=== PATIENT | female | born 1935 | race Caucasian/White ===

== ENCOUNTER 2016-09-01 21:38 | Observation (INO) ==
--- NOTE | 2016-09-01 21:51 | Emergency Department Note ---
Disposition Clinical Impression: Generalized weakness Urinary tract infection Qualifiers: Urinary tract infection type: acute cystitis Hematuria presence: without hematuria Qualified Code(s): N30.00 - Acute cystitis without hematuria Fever Qualifiers: Fever type: unspecified Qualified Code(s): R50.9 - Fever, unspecified Disposition: Admitted As Inpatient Condition: Good Referrals: Daniela Aburto MD [Primary Care Provider] - Forms: ED Satisfaction Letter Time of Disposition: 23:11 Weakness HPI - General Chief complaint: ED Weakness Stated complaint: weakness onset 2030 Time Seen by Provider: 09/01/16 21:45 Source: patient, family Mode of arrival: wheelchair Limitations: physical limitation (Early dementia) Nursing Notes Reviewed: Yes Vital Signs Reviewed: Yes - History of Present Illness HPI Narrative: 81-year-old female with onset of fatigue and weakness this evening. She has developed some rhinorrhea and a dry cough in the last 24 hours. She had fallen earlier today without injury. She was helped up and did fine. No loss of consciousness. No obvious injury to her head or any other area of her body. About 2 hours ago while she suddenly felt very weak, she had great difficulty in ambulating. Her cough has gotten worse. She has had a low-grade fever. No frequency or urgency. No chest pain or abdominal pain. Pt Subjective Complaint: generalized weakness/fatigue Onset (ago): hour(s) Duration: constant Location: generalized Migration: none Pain Severity: none Pain Scale: 0 Improves with: none Worsens with: exertion Context: recent illness Associated symptoms: Reports: denies other symptoms - Related Data Home Medications Medication Instructions Recorded Confirmed Aspirin [Lo-Dose Aspirin EC] 81 mg PO DAILY 09/01/16 09/01/16 Donepezil HCl [Aricept] 5 mg PO DAILY 09/01/16 09/01/16 Donepezil HCl [Aricept] 10 mg PO DAILY 09/01/16 09/01/16 Escitalopram [Lexapro] 10 mg PO DAILY 09/01/16 09/01/16 Memantine HCl [Namenda Xr] 28 mg PO DAILY 09/01/16 09/01/16 Potassium Chloride [Klor-Con 8 meq PO DAILY 09/01/16 09/01/16 Sprinkle] Quetiapine Fumarate [SEROquel] 100 mg PO HS 09/01/16 09/01/16 Triamterene/HCTZ 37.5/25mg 1 each PO DAILY 09/01/16 09/01/16 [Dyazide] Allergies Allergy/AdvReac Type Severity Reaction Status Date / Time No Known Allergies Allergy Verified 09/01/16 21:40 All systems ED: reviewed and negative except as stated. Constitutional: Reports: fever, chills Eyes: Denies: eye discharge ENT ED: Reports: congestion. Denies: ear pain, throat pain Cardiovascular: Denies: chest pain Respiratory: Reports: cough. Denies: dyspnea, wheezes Gastrointestinal: Denies: abdominal pain, nausea, vomiting, diarrhea Genitourinary: Denies: urgency, dysuria, frequency Integumentary: Denies: rash Physical Exam - General Limitations: no limitations General appearance: alert, in no apparent distress - Head Head exam: atraumatic, normocephalic - Eye Eye exam: Present: PERRL, EOMI. Absent: scleral icterus, conjunctival injection - ENT ENT exam: normal oropharynx, mucous membranes moist, TM's normal bilaterally - Neck Neck exam: Present: normal inspection, full ROM, trachea midline. Absent: tenderness, lymphadenopathy - Chest Chest inspection: Present: normal inspection, symmetric chest wall rise - Respiratory Respiratory exam: Present: normal lung sounds bilaterally. Absent: respiratory distress, wheezes, accessory muscle use - Cardiovascular Cardiovascular exam: Present: regular rate, normal rhythm, normal heart sounds - Abdominal Exam Abdominal exam: Present: soft, Non-Tender, normal bowel sounds. Absent: organomegaly, mass - Extremities Exam Extremities exam: Present: normal inspection, full ROM, normal capillary refill. Absent: tenderness - Back Exam Back exam: Present: normal inspection. Absent: CVA tenderness (R), CVA tenderness (L) - Neurological Exam Neurological exam: Present: alert, oriented X3, CN II-XII intact, reflexes normal (Diffusely weak but symmetrical motor function.) - Psychiatric Psychiatric exam: Present: normal affect, normal mood - Skin Skin exam: Present: warm, dry, intact Course - Reevaluation(s) Reevaluation #1: Discussed with Dr. Hernandez. Accepted for admission. Time: 23:23 Vital Signs Temperature 100.5 F H 09/01/16 21:41 Pulse Rate 71 09/01/16 21:41 Respiratory Rate 09/01/16 21:41 Blood Pressure 141/57 09/01/16 21:41 O2 Sat by Pulse Oximetry 94 L 09/01/16 21:41 Temperature 100.5 F H 09/01/16 21:42 Pulse Rate 76 09/01/16 22:04 Respiratory Rate 18 09/01/16 22:04 Blood Pressure 121/54 09/01/16 22:04 O2 Sat by Pulse Oximetry 94 L 09/01/16 22:04 Oxygen Delivery Oxygen Delivery Room Air Weakness - MDM Narrative Medical decision making narrative: Differential includes but is not limited to influenza, pneumonia, urinary tract infection, dehydration, hypoglycemia, hyperglycemia, CVA, traumatic subarachnoid hemorrhage. She has a low-grade fever, and pyuria. She has generalized weakness and is unable to ambulate. I plan on giving her IV fluids in light of her minimally elevated lactic acid, Rocephin IV, and plan on talking with Dr. Hernandez about observation admission. She is not able to go home because of generalized weakness. There is no indication that this is a neurologic problem, she has no focal weakness, her head CT is normal. - Lab Data Lab results reviewed: Yes I reviewed the patient's lab results. Result diagrams: 09/01/16 22:18 09/01/16 22:18 Lab Results 09/01/16 09/01/16 09/01/16 Range/Units 22:18 22:18 22:18 WBC 10.6 (4.3-11.1) K/mcL RBC 3.97 (3.82-4.97) M/mcL Hgb 12.7 (11.5-15.4) g/dL Hct 37.6 (35.3-44.9) % MCV 94.7 (83.0-100.0) fL MCH 32.0 (28.0-33.3) pg MCHC 33.8 (31.6-35.5) g/dL RDW 13.2 (11.5-14.5) % Plt Count 189 (140-400) K/mcL MPV 10.4 (9.4-12.4) fL Immature Gran % 0.3 (0-4) % Seg Neutrophils % 85.3 % Lymphocytes % 7.6 % Monocytes % 6.1 % Eosinophils % 0.2 % Basophils % 0.5 % Neutrophils # 9.1 H (1.6-8.9) K/mcL Lymphocytes # 0.8 (0.6-4.6) K/mcL Monocytes # 0.7 (0.0-1.3) K/mcL Eosinophils # 0.0 (0.0-0.6) K/mcL Basophils # 0.1 (0.0-0.2) K/mcL VBG Lactic Acid (0.5-2.2) mmol/L Sodium 137 (136-145) mEq/L Potassium 3.7 (3.5-4.5) mEq/L Chloride 100 (98-109) mEq/L Carbon Dioxide 23 (19-29) mEq/L BUN 17 (7-20) mg/dL Creatinine 1.06 (0.57-1.11) mg/dL Est GFR ( Amer) > 60 (> 60) Est GFR (Non-Af Amer) 50 L (> 60) BUN/Creatinine Ratio 16 (6-26) Glucose 137 H (70-99) mg/dL Calculated Osmolality 288 (280-300) Calcium 8.9 (8.6-10.8) mg/dL Total Bilirubin 0.5 (0.2-1.2) mg/dL AST 17 (5-34) Units/L ALT 11 (0-55) Units/L Alkaline Phosphatase 70 (38-126) Units/L Troponin I 0.01 (0-0.03) ng/mL Serum Total Protein 6.6 (6.0-8.3) g/dL Albumin 3.3 L (3.5-5.0) g/dL Globulin 3.3 (2.4-3.5) g/dL Albumin/Globulin Ratio 1.0 L (1.1-2.2) Urine Color (Yellow) Urine Clarity (Clear) Urine pH (5.0-8.0) pH Units Ur Specific [place] (1.010-1.025) Urine Protein (Neg-Trace) mg/dL Urine Glucose (UA) (Normal) mg/dL Urine Ketones (Negative) mg/dL Urine Blood (Negative) Urine Nitrite (Negative) Urine Bilirubin (Negative) Urine Urobilinogen (Normal) mg/dL Ur Leukocyte Esterase (Negative) Urine Microscopic RBC (0-3) per hpf Urine Microscopic WBC (0-3) per hpf Ur Squamous Epith Cells (None-Few) per lpf Ur Culture Indicated? (NO) 03/01/17 03/01/17 Range/Units 22:18 22:32 WBC (4.3-11.1) K/mcL RBC (3.82-4.97) M/mcL Hgb (11.5-15.4) g/dL Hct (35.3-44.9) % MCV (83.0-100.0) fL MCH (28.0-33.3) pg MCHC (31.6-35.5) g/dL RDW (11.5-14.5) % Plt Count (140-400) K/mcL MPV (9.4-12.4) fL Immature Gran % (0-4) % Seg Neutrophils % % Lymphocytes % % Monocytes % % Eosinophils % % Basophils % % Neutrophils # (1.6-8.9) K/mcL Lymphocytes # (0.6-4.6) K/mcL Monocytes # (0.0-1.3) K/mcL Eosinophils # (0.0-0.6) K/mcL Basophils # (0.0-0.2) K/mcL VBG Lactic Acid 2.5 H (0.5-2.2) mmol/L Sodium (136-145) mEq/L Potassium (3.5-4.5) mEq/L Chloride (98-109) mEq/L Carbon Dioxide (19-29) mEq/L BUN (7-20) mg/dL Creatinine (0.57-1.11) mg/dL Est GFR ( Amer) (> 60) Est GFR (Non-Af Amer) (> 60) BUN/Creatinine Ratio (6-26) Glucose (70-99) mg/dL Calculated Osmolality (280-300) Calcium (8.6-10.8) mg/dL Total Bilirubin (0.2-1.2) mg/dL AST (5-34) Units/L ALT (0-55) Units/L Alkaline Phosphatase (38-126) Units/L Troponin I (0-0.03) ng/mL Serum Total Protein (6.0-8.3) g/dL Albumin (3.5-5.0) g/dL Globulin (2.4-3.5) g/dL Albumin/Globulin Ratio (1.1-2.2) Urine Color Yellow (Yellow) Urine Clarity Clear (Clear) Urine pH 7.5 (5.0-8.0) pH Units Ur Specific [place] 1.020 (1.010-1.025) Urine Protein Negative (Neg-Trace) mg/dL Urine Glucose (UA) Normal (Normal) mg/dL Urine Ketones Negative (Negative) mg/dL Urine Blood Trace-intact H (Negative) Urine Nitrite Negative (Negative) Urine Bilirubin Negative (Negative) Urine Urobilinogen Normal (Normal) mg/dL Ur Leukocyte Esterase Small H (Negative) Urine Microscopic RBC 0-3 (0-3) per hpf Urine Microscopic WBC 5-15 H (0-3) per hpf Ur Squamous Epith Cells Moderate H (None-Few) per lpf Ur Culture Indicated? YES A (NO) - Radiology Data Radiology results reviewed: Yes I reviewed the patient's radiology results. ITS Impressions Chest X-Ray 09/01/16 21:47 IMPRESSION: No acute cardiopulmonary abnormality. D/ / Mikie Chavez MD / Mikie Chavez MD Interpreting Provider: Mikie Chavez MD Head CT 09/01/16 21:49 IMPRESSION: No acute intracranial abnormality. White matter changes compatible with small vessel ischemic disease which are not unexpected given patient's stated age. MRI would be more sensitive for acute ischemic change. Minimal paranasal sinus disease. D/ / 09/01/2016 22:59:11 [facility] Inter[facility]ting Provider: Peng Culp MD - EKG Data EKG attestation: Yes I reviewed and interpreted this EKG. EKG results narrative: Sinus rhythm, rate of 72, no acute changes. Rhythm strip shows sinus rhythm with rate of 72, purulent 149 ms, QRS of 85 ms with no other ectopy as interpreted by me.
[2016-09-01 22:25] LABS: Basophils # 0.1 K/mcL (0.0-0.2); Basophils % 0.5 %; Eosinophils % 0.2 %; Hematocrit 37.6 % (35.3-44.9); Hemoglobin 12.7 g/dL (11.5-15.4); Immature Granulocytes % 0.3 % (0-4); Lymphocytes # 0.8 K/mcL (0.6-4.6); Lymphocytes % 7.6 %; Mean Corpuscular HGB Conc 33.8 g/dL (31.6-35.5); Mean Corpuscular Volume 94.7 fL (83.0-100.0); Mean Platelet Volume 10.4 fL (9.4-12.4); Monocytes # 0.7 K/mcL (0.0-1.3); Monocytes % 6.1 %; Neutrophils # 9.1 K/mcL (1.6-8.9); Platelet Count 189 K/mcL (140-400); Red Blood Count 3.97 M/mcL (3.82-4.97); Red Cell Distribution Width 13.2 % (11.5-14.5); Segmented Neutrophils % 85.3 %
[2016-09-01 22:40] LABS: Bilirubin,Urine Negative (Negative); Blood,Urine Trace-intact (Negative); Clarity,Urine Clear (Clear); Color,Urine Yellow (Yellow); Glucose,Urine (UA) Normal (Normal); Ketones,Urine Negative (Negative); Leukocyte Esterase,Urine Small (Negative); Nitrite,Urine Negative (Negative); PH,Urine 7.5 pH Units (5.0-8.0); Protein,Urine Negative (Neg-Trace); Urobilinogen,Urine Normal (Normal)
[2016-09-01 22:49] LABS: RBC,Urine 0-3 per hpf (0-3); Squamous Epithelial Cell,Urine Moderate per lpf (None-Few)
[2016-09-01] MEDS ORDERED: CefTRIAXone 1,000 MG in D5% in Water (Mini-Bag+) 100 ML IVPB ONE (22:53)
[2016-09-01 22:54] LABS: Alanine Aminotransferase 11 Units/L (0-55); Albumin 3.3 g/dL (3.5-5.0); Alkaline Phosphatase 70 Units/L (38-126); Aspartate Amino Transferase 17 Units/L (5-34); BUN/Creatinine Ratio 16 (6-26); Bilirubin,Total 0.5 mg/dL (0.2-1.2); Blood Urea Nitrogen 17 mg/dL (7-20); Calcium 8.9 mg/dL (8.6-10.8); Carbon Dioxide 23 mEq/L (19-29); Chloride 100 mEq/L (98-109); Globulin 3.3 g/dL (2.4-3.5); Glucose 137 mg/dL (70-99); Osmolality,Calculated 288 (280-300); Potassium 3.7 mEq/L (3.5-4.5); Sodium 137 mEq/L (136-145); Total Protein 6.6 g/dL (6.0-8.3); eGFR For African Americans > 60 (> 60); eGFR For Non-African Americans 50 (> 60)
[2016-09-01] MEDS ORDERED: 0.9 % Sodium Chloride 1,000 ML IVC SCH ×3 (23:00→23:51)
[2016-09-01] MEDS ORDERED: Acetaminophen 325 MG TABLET PO PRN (23:51)
[2016-09-01] MEDS ORDERED: Naloxone 0.4 MG/ML INJ IVP PRN (23:51)
[2016-09-02] MEDS ORDERED: CefTRIAXone 1,000 MG in D5% in Water (Mini-Bag+) 100 ML IVPB SCH ×2 (09:00→23:00)
[2016-09-02] MEDS ORDERED: Aspirin Enteric Coated 81 MG Tablet PO SCH (09:00)
[2016-09-02] MEDS ORDERED: Potassium Chloride Elixir 20 MEQ/15 ML UDC PO SCH (09:00)
[2016-09-02] MEDS ORDERED: NAMENDA 28 MG PO SCH (09:00)
--- NOTE | 2016-09-02 09:00 | Electrocardiograph Report ---
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
[2016-09-02 12:19] VITALS: BP 110/66
--- NOTE | 2016-09-02 15:02 | Internal Med History&Physical ---
Date of Encounter: 09/02/16 Time of Encounter: 14:25 Assessment and Plan (1) Urinary tract infection Current visit: Yes Status: Acute She was given Rocephin empirically in emergency room. Further workup will be done as needed. Qualifiers: Urinary tract infection type: acute cystitis Hematuria presence: without hematuria Qualified Code(s): N30.00 - Acute cystitis without hematuria (2) Fever Current visit: Yes Status: Acute She has evidence of UTI. Suspect possible viral infection present with URI symptoms of rhinorrhea and sore throat etc. Qualifiers: Fever type: unspecified Qualified Code(s): R50.9 - Fever, unspecified (3) Azotemia Current visit: Yes Status: Acute Renal function was normal February 2016 with creatinine 0.74. I told her a trial off Dyazide might be appropriate Internal Medicine - H&P: HPI Chief complaint: Fall and weakness Admitted From: Home Plans for Post Hospital Care: Home History of present illness: Ms. Davila is a 81 year old female who came to emergency room after family reports she sustained a fall approximately 9:30 AM. She reports there was vertigo associated with the fall. She had approximately 50% intake of her lunch and supper. She was noted to be incontinent approximately 8:30 PM and had another episode of weakness. She was brought to emergency room and admitted to [facility] for ongoing care needs. She reports for several weeks she has had episodes of nearly falling due to sensation of vertigo. She reports having sore throat and rhinorrhea also for 2 weeks. She has had a dry cough the past few days. She denies GI symptoms. Her neurologic history is negative for large distribution strokes or seizures. She states she feels improved now and back to baseline. She wishes to be discharged home. Past Med Surg Social Fam HX - Past Medical History Medical history: arthritis, cancer, dementia, hypertension, other Psychiatric history: depression - Social History Smoking Status: Never smoker Smokeless Tobacco Status: No Alcohol use: none Drug use: none - Family History Mother Adopted: No Cause of : 101 Hx Family Neurologic Disorders: Yes (Alzheimers) Father Living Status: Age at : 86 Cause of : car accident Internal Medicine - H&P: Meds Aspirin [Lo-Dose Aspirin EC] 81 mg PO DAILY 09/01/16 [History] Donepezil HCl [Aricept] 5 mg PO DAILY 09/01/16 [History] Donepezil HCl [Aricept] 10 mg PO DAILY 09/01/16 [History] Escitalopram [Lexapro] 10 mg PO DAILY 09/01/16 [History] Memantine HCl [Namenda Xr] 28 mg PO DAILY 09/01/16 [History] Potassium Chloride [Klor-Con Sprinkle] 8 meq PO DAILY 09/01/16 [History] Quetiapine Fumarate [SEROquel] 100 mg PO HS 09/01/16 [History] Triamterene/HCTZ 37.5/25mg [Dyazide] 1 each PO DAILY 09/01/16 [History] Allergies No Known Allergies Allergy (Verified 09/01/16 21:40) All Systems PM: A 10-system review of systems was performed and is negative for pertinent findings except as documented above in the HPI. Review of systems: Gen.: She states her weight has been stable the past few months Cardiovascular: She has a history of hypertension but denies SD heart failure angina DVT or pulmonary embolus Respiratory: She is a lifelong nonsmoker and has no known chronic lung disease GI: She has had gallstones in the past which were dissolved with ursodeoxycholic acid. She denies other disorders of her liver or exocrine pancreas : She denies hematuria dysuria or kidney stones. She denies chronic kidney disease. She did have creatinine 1.06 on emergency room lab work. Her creatinine was 0.74 on February 2016 labs. Neurologic: As per history of present illness. She has been diagnosed with Alzheimer's disease Endocrine: She states she had "thyroid problems" as a young adult. She does not know details. She denies diabetes or hyperlipidemia Hematology/oncology: She had left breast cancer diagnosed in 2007 and underwent lumpectomy and XRT. She follows with an oncologist and is presumed cancer free. She denies other blood disorders or internal malignancies Psychiatric: She has a history of depression but denies anxiety or other mental health issues was skeletal: She has DJD but no known gout or other bone joint or muscle disorders. - Constitutional Vitals: Temp Pulse Resp BP Pulse Ox 98.7 F 62 18 110/66 95 09/02/16 12:17 09/02/16 12:17 09/02/16 12:17 09/02/16 12:17 09/02/16 12:17 Exam: Gen.: She is a well-developed well-nourished female who appears in no severe distress at present time. HEENT: Head is atraumatic and normocephalic. Eyes: EOMI. There is no scleral icterus. Mouth: Mucosa is moist. Neck: Supple and nontender. There is no thyromegaly or adenopathy noted. Heart: Regular without murmurs gallops or ectopics. Lungs: No wheezes or crackles are heard. Abdomen: Soft and nontender. No masses or guarding are noted. Extremities: There is no cyanosis edema or clubbing noted. Dorsalis pedis and posttibial pulses are 1-2 over 2 bilaterally. Neurologic: Mental status: She is talkative and seems to be a fair to good historian. Cranial nerves: Smile is symmetric. Forehead wrinkles bilaterally. Tongue protrudes midline. EOMI. She had no reproduction of symptoms of vertigo on modified Hallpike maneuver or turning head [id number]. Motor: There is no pronator drift. Cerebellar: Finger to nose is intact bilaterally. Skin: Warm and dry Internal Med - H&P Results - Labs CBC & Chem 7: 09/01/16 22:18 09/01/16 22:18
--- NOTE | 2016-09-02 15:14 | Discharge Summary ---
Date of Encounter: 09/02/16 Time of Encounter: 14:25 - Discharge Diagnosis (1) Urinary tract infection Priority: Primary Status: Acute Qualifiers: Urinary tract infection type: acute cystitis Hematuria presence: without hematuria Qualified Code(s): N30.00 - Acute cystitis without hematuria (2) Fever Priority: Secondary Status: Acute Qualifiers: Fever type: unspecified Qualified Code(s): R50.9 - Fever, unspecified (3) Azotemia Priority: Secondary Status: Acute - Discharge Medications Prescriptions: Cefuroxime PO [Ceftin] 500 mg PO Q12HR #6 tablet Lactobacillus [Culturelle] 1 each PO BID #6 cap.sprink Home Medications: Aspirin [Lo-Dose Aspirin EC] 81 mg PO DAILY 09/01/16 [History] Donepezil HCl [Aricept] 5 mg PO DAILY 09/01/16 [History] Donepezil HCl [Aricept] 10 mg PO DAILY 09/01/16 [History] Escitalopram [Lexapro] 10 mg PO DAILY 09/01/16 [History] Memantine HCl [Namenda Xr] 28 mg PO DAILY 09/01/16 [History] Potassium Chloride [Klor-Con Sprinkle] 8 meq PO DAILY 09/01/16 [History] Quetiapine Fumarate [Seroquel] 100 mg PO HS 09/01/16 [History] Triamterene/HCTZ 37.5/25mg [Dyazide] 1 each PO DAILY 09/01/16 [History] Cefuroxime PO [Ceftin] 500 mg PO Q12HR #6 tablet 09/02/16 [Rx] Lactobacillus [Culturelle] 1 each PO BID #6 cap.sprink 09/02/16 [Rx] Allergies/Adverse Reactions: Allergies No Known Allergies Allergy (Verified 09/01/16 21:40) Date of admission: 09/01/16 23:28 Primary care physician: Daniela Aburto MD - Patient Status Disposition: Home, Self-Care Condition: Good Overall status at discharge: patient is progressing back to baseline - Discharge Instructions Follow Up With: Daniela Aburto MD [Primary Care Provider] - 1 week - Diet and Activity Activity: resume usual activities as tolerated Diet: advance to your usual diet Hospital course: Ms. Davila is a 81 year old female who came to emergency room after family reports she sustained a fall approximately 9:30 AM. She reports there was vertigo associated with the fall. She had approximately 50% intake of her lunch and supper. She was noted to be incontinent approximately 8:30 PM and had another episode of weakness. She was brought to emergency room and admitted to [facility] for ongoing care needs. Initial orders were written by the emergency room physician. I saw her on September 02 and performed the history physical and discharge. She was admitted to [facility] and given IV fluids and started empirically on Rocephin. When I saw her the afternoon of September 02 she felt improved and had no additional falls and no complaints of vertigo. She wished to be discharged home which I felt was reasonable. I felt she likely had a UTI and possibly viral infection causing URI symptoms. She will receive Ceftin and lactobacillus for 3 additional days at discharge. She will follow with her PCP within one week. Orthostatic vital signs will be checked prior to discharge. I told her the azotemia might be due in part to her Dyazide use. I will let her PCP consider a trial of discontinuing this and seeing if renal indices improve. - Time Spent with Patient Total time spent providing and/or coordinating discharge services: - Constitutional Vitals: Temp Pulse Resp BP Pulse Ox 98.7 F 62 18 110/66 95 09/02/16 12:17 09/02/16 12:17 09/02/16 12:17 09/02/16 12:17 09/02/16 12:17
== END 2016-09-02 16:36 | disposition home or self-care (01) ==
LOC: EMEROOPIK 21:38 → INPPIK 21:38
PROVIDERS: ADMIT Internal Medicine; ATTEND Internal Medicine

== ENCOUNTER 2018-07-18 23:48 | Inpatient (IN) ==
[2018-07-19] MEDS ORDERED: 0.9 % Sodium Chloride 1,000 ML IVC ONE (00:17)
[2018-07-19 00:44] LABS: Basophils % 0.3 %; Eosinophils % 0.2 %; Hematocrit 46.4 % (35.3-44.9); Hemoglobin 15.2 g/dL (11.5-15.4); Immature Granulocytes % 0.5 % (0-4); Lymphocytes # 0.6 K/mcL (0.6-4.6); Lymphocytes % 4.9 %; Mean Corpuscular HGB Conc 32.8 g/dL (31.6-35.5); Mean Corpuscular Volume 97.7 fL (83.0-100.0); Mean Platelet Volume 10.7 fL (9.4-12.4); Monocytes # 0.9 K/mcL (0.0-1.3); Monocytes % 6.7 %; Platelet Count 222 K/mcL (140-400); Red Blood Count 4.75 M/mcL (3.82-4.97); Red Cell Distribution Width 12.9 % (11.5-14.5); Segmented Neutrophils % 87.4 %
[2018-07-19 00:45] LABS: Neutrophils # 11.5 K/mcL (1.6-8.9)
[2018-07-19 01:01] LABS: Alanine Aminotransferase 9 Units/L (7-52); Albumin/Globulin Ratio 1.5 (1.1-2.2); Alkaline Phosphatase 79 Units/L (34-104); Aspartate Amino Transferase 17 Units/L (13-39); BUN/Creatinine Ratio 15 (6-26); Bilirubin,Direct 0.1 mg/dL (0.0-0.2); Bilirubin,Indirect 0.3 mg/dL (0.0-1.2); Bilirubin,Total 0.4 mg/dL (0.3-1.0); Blood Urea Nitrogen 19 mg/dL (8-23); Calcium 9.2 mg/dL (8.6-10.3); Carbon Dioxide 24 mEq/L (23-29); Chloride 104 mEq/L (98-107); Globulin 2.6 g/dL (2.4-3.5); Glucose 178 mg/dL (70-105); Osmolality,Calculated 297 (280-300); Potassium 4.1 mEq/L (3.5-5.1); Sodium 140 mEq/L (136-145); Total Protein 6.6 g/dL (6.4-8.9); eGFR For Non-African Americans 42 (> 60)
[2018-07-19 01:02] LABS: Troponin I < 0.03 ng/mL (< 0.04)
[2018-07-19 01:40] LABS: Bilirubin,Urine Negative (Negative); Blood,Urine Trace-lysed (Negative); Clarity,Urine Cloudy (Clear); Color,Urine Yellow (Yellow); Glucose,Urine (UA) Normal (Normal); Ketones,Urine Trace mg/dL (Negative); Leukocyte Esterase,Urine Large (Negative); Nitrite,Urine Positive (Negative); PH,Urine 5.5 pH Units (5.0-8.0); Protein,Urine Negative (Neg-Trace); Urobilinogen,Urine Normal (Normal)
[2018-07-19 01:46] LABS: Bacteria,Urine Many per hpf (None-Few); Hyaline Casts,Urine Few per lpf (None-Few); RBC,Urine 0-3 per hpf (0-3); Squamous Epithelial Cell,Urine Few per lpf (None-Few)
--- NOTE | 2018-07-19 02:16 | Emergency Department Note ---
Disposition Clinical Impression: Altered mental status Qualifiers: Altered mental status type: delirium Qualified Code(s): R41.0 - Disorientation, unspecified Urinary tract infection Qualifiers: Urinary tract infection type: site unspecified Hematuria presence: with hematuria Qualified Code(s): N39.0 - Urinary tract infection, site not specified Disposition: Admitted As Inpatient Condition: Fair Referrals: NONE,PCP [Primary Care Provider] - Forms: ED Satisfaction Letter Time of Disposition: 02:20 Altered Mental Status HPI - General Chief Complaint: ED Weakness Stated Complaint: Lethargic, altered mental status onset today Time Seen by Provider: 07/19/18 00:08 Source: patient, family Mode of arrival: private vehicle Limitations: no limitations Nursing Notes Reviewed: Yes Vital Signs Reviewed: Yes - History of Present Illness MD complaint: altered mental status 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 This seems to have improved on route to the emergency department.) Associated symptoms: Reports: denies other symptoms - Related Data Home Medications Medication Instructions Recorded Confirmed Aspirin [Lo-Dose Aspirin EC] 81 mg PO DAILY 09/01/16 07/19/18 Donepezil HCl [Aricept] 23 mg PO DAILY 09/01/16 07/19/18 Memantine HCl [Namenda Xr] 28 mg PO DAILY 09/01/16 07/19/18 Quetiapine Fumarate [Seroquel] 50 mg PO BID 09/01/16 07/19/18 Buspirone HCl [Buspar] 5 mg PO QID 07/19/18 07/19/18 Metoprolol [Lopressor] 25 mg PO DAILY 07/19/18 07/19/18 Previous Rx's Medication Instructions Recorded Cetirizine HCl [Zyrtec] 10 mg PO DAILY #90 tablet 12/21/17 Allergies Allergy/AdvReac Type Severity Reaction Status Date / Time No Known Allergies Allergy Verified 09/01/16 21:40 All systems ED: reviewed and negative except as stated. Constitutional: Denies: fever, chills ENT ED: Denies: ear pain, throat pain, congestion Cardiovascular: Denies: chest pain Respiratory: Denies: cough Gastrointestinal: Reports: diarrhea Integumentary: Denies: rash Neurological: Reports: weakness (Generalized), confusion (That seems to have resolved and is back to baseline) Past Medical History - Past Medical History Attestation: Yes The following information was validated with the patient. 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 Absent: scleral icterus, conjunctival injection - ENT ENT exam: normal exam, normal oropharynx, mucous membranes moist, normal external ear exam - Neck Neck exam: Present: normal inspection, full ROM. Absent: meningismus - Chest Chest inspection: Present: normal inspection, symmetric chest wall rise. Absent: tenderness - Respiratory Respiratory exam: Present: normal lung sounds bilaterally. Absent: respiratory distress, wheezes - Cardiovascular Cardiovascular exam: Present: regular rate, normal rhythm, normal heart sounds - Abdominal Exam Abdominal exam: Present: soft, Non-Tender, normal bowel sounds - Extremities Exam Extremities exam: Present: normal inspection. Absent: pedal edema - Neurological Exam Neurological exam: Present: alert, CN II-XII intact. Absent: motor sensory de ficit - Psychiatric Psychiatric exam: Present: normal affect, normal mood - Skin Skin exam: Present: warm, dry. Absent: rash Course Course Narrative: Patient presents with an episode of confusion this evening. Seems to have recovered and back to baseline at this point. Vital signs look good. Looking in the old records a see history of urinary tract infections with confusion. Infectious disease certainly is top of the list. We will do an altered mental status workup. There are no focal neurologic findings I do not see indication for CT. We will give the patient fluids and await lab results. Disposition will be based on diagnostic results and reevaluation. - Reevaluation(s) Reevaluation #1: Urinalysis came back obviously positive for urinary tract infection. Her lactic as was little bit high at 4.3 as well. However the rest of the labs looked pretty good. Vital signs are good with no tachycardia or hypotension at this point. I started Rocephin on the patient. She will need to be admitted to the hospital. I will talk to the hospitalist. Time: 02:18 - Consultations Consultation #1: Dr. Hernandez, hospitalist - I discussed the case with the hospitalist. He is accepting the patient for admission to the hospital Time: 02:34 Vital Signs Temperature 97.3 F L 07/18/18 23:50 Pulse Rate 81 07/18/18 23:50 Respiratory Rate 16 07/18/18 23:50 Blood Pressure 112/51 07/18/18 23:50 O2 Sat by Pulse Oximetry 97 07/18/18 23:50 Temperature 97.3 F L 07/18/18 23:50 Pulse Rate 67 07/19/18 01:50 Respiratory Rate 16 07/19/18 01:50 Blood Pressure 122/45 07/19/18 01:50 O2 Sat by Pulse Oximetry 96 07/19/18 01:50 Oxygen Delivery Oxygen Delivery Room Air Altered Mental Status - Medical Records Medical records reviewed: Yes I reviewed the patient's medical records. - Lab Data Lab results reviewed: Yes I reviewed the patient's lab results. Result diagrams: 07/19/18 00:36 07/19/18 00:36 Lab Results 07/19/18 07/19/18 07/19/18 Range/Units 00:36 00:36 00:36 WBC 13.1 H (4.3-11.1) K/mcL RBC 4.75 (3.82-4.97) M/mcL Hgb 15.2 (11.5-15.4) g/dL Hct 46.4 H (35.3-44.9) % MCV 97.7 (83.0-100.0) fL MCH 32.0 (28.0-33.3) pg MCHC 32.8 (31.6-35.5) g/dL RDW 12.9 (11.5-14.5) % Plt Count 222 (140-400) K/mcL MPV 10.7 (9.4-12.4) fL Immature Gran % 0.5 (0-4) % Seg Neutrophils % 87.4 % Lymphocytes % 4.9 % Monocytes % 6.7 % Eosinophils % 0.2 % Basophils % 0.3 % Neutrophils # 11.5 H (1.6-8.9) K/mcL Lymphocytes # 0.6 (0.6-4.6) K/mcL Monocytes # 0.9 (0.0-1.3) K/mcL Eosinophils # 0.0 (0.0-0.6) K/mcL Basophils # 0.0 (0.0-0.2) K/mcL D-Dimer 1420 H (0-500) ng/mLFEU Sodium 140 (136-145) mEq/L Potassium 4.1 (3.5-5.1) mEq/L Chloride 104 (98-107) mEq/L Carbon Dioxide 24 (23-29) mEq/L BUN 19 (8-23) mg/dL Creatinine 1.23 H (0.60-1.20) mg/dL Est GFR ( Amer) 51 L (> 60) Est GFR (Non-Af Amer) 42 L (> 60) BUN/Creatinine Ratio 15 (6-26) Glucose 178 H (70-105) mg/dL Calculated Osmolality 297 (280-300) Lactic Acid (0.5-2.2) mmol/L Calcium 9.2 (8.6-10.3) mg/dL Total Bilirubin 0.4 (0.3-1.0) mg/dL Direct Bilirubin 0.1 (0.0-0.2) mg/dL Indirect Bilirubin 0.3 (0.0-1.2) mg/dL AST 17 (13-39) Units/L ALT 9 (7-52) Units/L Alkaline Phosphatase 79 (34-104) Units/L Troponin I < 0.03 (< 0.04) ng/mL B-Natriuretic Peptide (Less than 100) pg/mL Serum Total Protein 6.6 (6.4-8.9) g/dL Albumin 4.0 (3.5-5.7) g/dL Globulin 2.6 (2.4-3.5) g/dL Albumin/Globulin Ratio 1.5 (1.1-2.2) Urine Color (Yellow) Urine Clarity (Clear) Urine pH (5.0-8.0) pH Units Ur Specific [place] (1.010-1.025) Urine Protein (Neg-Trace) mg/dL Urine Glucose (UA) (Normal) mg/dL Urine Ketones (Negative) mg/dL Urine Blood (Negative) Urine Nitrite (Negative) Urine Bilirubin (Negative) Urine Urobilinogen (Normal) mg/dL Ur Leukocyte Esterase (Negative) Urine Microscopic RBC (0-3) per hpf Urine Microscopic WBC (0-3) per hpf Ur Squamous Epith Cells (None-Few) per lpf Urine Bacteria (None-Few) per hpf Hyaline Casts (None-Few) per lpf Ur Culture Indicated? (NO) 07/19/18 07/19/18 07/19/18 Range/Units 00:36 00:36 01:25 WBC (4.3-11.1) K/mcL RBC (3.82-4.97) M/mcL Hgb (11.5-15.4) g/dL Hct (35.3-44.9) % MCV (83.0-100.0) fL MCH (28.0-33.3) pg MCHC (31.6-35.5) g/dL RDW (11.5-14.5) % Plt Count (140-400) K/mcL MPV (9.4-12.4) fL Immature Gran % (0-4) % Seg Neutrophils % % Lymphocytes % % Monocytes % % Eosinophils % % Basophils % % Neutrophils # (1.6-8.9) K/mcL Lymphocytes # (0.6-4.6) K/mcL Monocytes # (0.0-1.3) K/mcL Eosinophils # (0.0-0.6) K/mcL Basophils # (0.0-0.2) K/mcL D-Dimer (0-500) ng/mLFEU Sodium (136-145) mEq/L Potassium (3.5-5.1) mEq/L Chloride (98-107) mEq/L Carbon Dioxide (23-29) mEq/L BUN (8-23) mg/dL Creatinine (0.60-1.20) mg/dL Est GFR ( Amer) (> 60) Est GFR (Non-Af Amer) (> 60) BUN/Creatinine Ratio (6-26) Glucose (70-105) mg/dL Calculated Osmolality (280-300) Lactic Acid 4.3 H* (0.5-2.2) mmol/L Calcium (8.6-10.3) mg/dL Total Bilirubin (0.3-1.0) mg/dL Direct Bilirubin (0.0-0.2) mg/dL Indirect Bilirubin (0.0-1.2) mg/dL AST (13-39) Units/L ALT (7-52) Units/L Alkaline Phosphatase (34-104) Units/L Troponin I (< 0.04) ng/mL B-Natriuretic Peptide 33 (Less than 100) pg/mL Serum Total Protein (6.4-8.9) g/dL Albumin (3.5-5.7) g/dL Globulin (2.4-3.5) g/dL Albumin/Globulin Ratio (1.1-2.2) Urine Color Yellow (Yellow) Urine Clarity Cloudy A (Clear) Urine pH 5.5 (5.0-8.0) pH Units Ur Specific [place] 1.020 (1.010-1.025) Urine Protein Negative (Neg-Trace) mg/dL Urine Glucose (UA) Normal (Normal) mg/dL Urine Ketones Trace H (Negative) mg/dL Urine Blood Trace-lysed H (Negative) Urine Nitrite Positive A (Negative) Urine Bilirubin Negative (Negative) Urine Urobilinogen Normal (Normal) mg/dL Ur Leukocyte Esterase Large H (Negative) Urine Microscopic RBC 0-3 (0-3) per hpf Urine Microscopic WBC 5-15 H (0-3) per hpf Ur Squamous Epith Cells Few (None-Few) per lpf Urine Bacteria Many H (None-Few) per hpf Hyaline Casts Few (None-Few) per lpf Ur Culture Indicated? YES A (NO) - Radiology Data Radiology results reviewed: Yes I reviewed the patient's radiology results. - EKG Data EKG attestation: Yes I reviewed and interpreted this EKG. EKG results narrative: Twelve-lead EKG performed at 00:03 a.m. Ordered, reviewed and interpreted by ED physician. Sinus rhythm at a rate of 75. Left axis deviation. Slow R-wave progression across corneum. No obvious acute ischemic changes. Intervals are within normal limits. TPA Checklist - LKW: 3-4.5 hrs Add. Warnings/Precautions Patient/family understanding: The patient/family members have been counseled and understood the risk, benefit, and alternatives of treatment.
[2018-07-19] MEDS ORDERED: Naloxone 0.4 MG/ML INJ IVP PRN (03:14)
[2018-07-19] MEDS ORDERED: 0.9 % Sodium Chloride 1,000 ML IVC SCH (03:14)
[2018-07-19] MEDS ORDERED: DONEPEZIL 23MG PO SCH (09:00)
[2018-07-19] MEDS: Metoprolol XL (24 HR) Succ 25 MG TAB.ER.24H PO SCH (09:20)
[2018-07-19] MEDS: Aspirin Enteric Coated 81 MG Tablet PO SCH (09:20)
--- NOTE | 2018-07-19 11:51 | Internal Med History&Physical ---
Date of Encounter: 07/19/18 Time of Encounter: 11:25 Assessment and Plan (1) Acute renal failure Current visit: Yes Status: Acute IV fluids have been ordered. Renal indices will be monitored. Qualifiers: Acute renal failure type: unspecified Qualified Code(s): N17.9 - Acute kidney failure, unspecified (2) Diarrhea Current visit: Yes Status: Acute Suspect viral gastroenteritis. Anti-diarrhea medication has been ordered as needed. IV fluids will be given. Qualifiers: Diarrhea type: unspecified type Qualified Code(s): R19.7 - Diarrhea, unspecified (3) Weight loss Current visit: Yes Status: Acute CT of chest, abdomen, and pelvis will be ordered along with TSH to further evaluate. (4) Neutrophilic leukocytosis Current visit: Yes Status: Acute Suspect UTI and/or viral gastroenteritis contributing. Order CT of chest, ab domen, and pelvis to further evaluate. (5) Elevated d-dimer Current visit: Yes Status: Acute No symptoms of DVT/pulmonary embolus. Will start prophylactic dose Lovenox for now. (6) Dementia Current visit: Yes Status: Chronic Continue Aricept and Namenda Qualifiers: Dementia type: Alzheimer's disease Alzheimer's disease onset: unspecified onset Dementia behavioral disturbance: with behavioral disturbance Qualified Code(s): G30.9 - Alzheimer's disease, unspecified; F02.81 - Dementia in other diseases classified elsewhere with behavioral disturbance (7) Hypertension Current visit: Yes Status: Chronic Continue Toprol XL Qualifiers: Hypertension type: essential hypertension Qualified Code(s): I10 - Essential (primary) hypertension (8) Urinary tract infection Current visit: Yes Status: Acute She has been started on Rocephin in emergency room. Add lactobacillus and await urine culture report. Qualifiers: Urinary tract infection type: site unspecified Hematuria presence: with hematuria Qualified Code(s): N39.0 - Urinary tract infection, site not specified; R31.9 - Hematuria, unspecified Internal Medicine - H&P: HPI Chief complaint: Weakness and confusion Admitted From: Emergency Dept Plans for Post Hospital Care: Home History of present illness: Ms. Davila is a 82 year old female who came to emergency room after having 5-6 episodes of diarrhea with weakness and confusion. Her daughter found her standing in the hallway in the early-morning hours pale and diaphoretic. The daughter brought her to emergency room where she was found to have acute renal failure, leukocytosis with neutrophilia, and probable UTI. D-dimer was elevat ed. [facility]. She denies pain or dyspnea at the present time. Past Med Surg Social Fam HX - Past Medical History Medical history: arthritis, CHF, dementia, hypertension, renal disease Additional medical history: Left breast lumpectomy Psychiatric history: depression - Past Surgical History Additional surgical history: breast cancer radiation and lumpectomy left breast,. feet surgery for spurs. Lasik surgery to eyes - Social History Smoking Status: Never smoker Smokeless Tobacco Status: No Alcohol use: none Drug use: none - Family History Mother Adopted: No Hx Family Cancer: Yes (Breast Ca.) Hx Family Neurologic Disorders: Yes (Alzheimers) Father Living Status: Cause of : [facility] Internal Medicine - H&P: Meds Aspirin [Lo-Dose Aspirin EC] 81 mg PO DAILY 09/01/16 [History] Donepezil HCl [Aricept] 23 mg PO DAILY 09/01/16 [History] Memantine HCl [Namenda Xr] 28 mg PO DAILY 09/01/16 [History] Quetiapine Fumarate [Seroquel] 50 mg PO BID 09/01/16 [History] Cetirizine HCl [Zyrtec] 10 mg PO DAILY #90 tablet 12/21/17 [Rx] Buspirone HCl [Buspar] 5 mg PO QID 07/19/18 [History] Metoprolol Succinate [Toprol Xl] 25 mg PO DAILY 07/19/18 [History] Allergy/AdvReac Type Severity Reaction Status Date / Time No Known Allergies Allergy Verified 09/01/16 21:40 All Systems PM: A 10-system review of systems was performed and is negative for pertinent findings except as documented above in the HPI. Review of systems: Review of systems from her September 2016 [facility] hospitalization were reviewed and revised as below. Gen.: Her weight has decreased from 75.296 kg on 09/02/2016 to 61.405 kg today. Weight loss was unintentional. Cardiovascular: She has a history of hypertension but denies SC heart failure angina DVT or pulmonary embolus Respiratory: She is a lifelong nonsmoker and has no known chronic lung disease GI: She has had gallstones in the past which were dissolved with ursodeoxycholic acid. She denies other disorders of her liver or exocrine pancreas : She denies hematuria dysuria or kidney stones. She denies chronic kidney disease. Neurologic: She has been diagnosed with Alzheimer's disease. She has no known large distribution strokes or seizures. Endocrine: She states she had "thyroid problems" as a young adult. She does not know details. She denies diabetes or hyperlipidemia Hematology/oncology: She had left breast cancer diagnosed in 2007 and underwent lumpectomy and XRT. She follows with an oncologist and is presumed cancer free. She denies other blood disorders or internal malignancies Psychiatric: She has a history of depression but denies anxiety or other mental health issues was skeletal: She has DJD but no known gout or other bone joint or muscle disorders. - Constitutional Vitals: Temp Pulse Resp BP Pulse Ox 99.0 F 58 16 106/58 96 07/19/18 11:03 07/19/18 11:03 07/19/18 11:03 07/19/18 11:03 07/19/18 11:03 Exam: Gen.: She is a well-developed well-nourished female lying in bed who appears in no acute distress HEENT: Head is atraumatic and normocephalic. Eyes: EOMI. There is no scleral icterus. Mouth: Mucosa is moist. Neck: There is no thyromegaly or adenopathy noted. Heart: Regular without murmurs gallops or ectopics Lungs: No wheezes or crackles are heard. Abdomen: Soft and nontender. No masses or guarding are noted. Extremities: There is no cyanosis edema or clubbing noted. Dorsalis pedis and posttibial pulses are trace palpable bilaterally. She has minimal DJD changes of her hands. Neurologic: Mental status: She is talkative and able to answer some questions. She is a fair historian at best. She does not know her age. Cranial nerves: Smile is symmetric. Forehead wrinkles bilaterally. Tongue protrudes midline. EOMI. Motor: There is no pronator drift. Cerebellar: Finger to nose is intact bilaterally. Skin: Warm and dry Internal Med - H&P Results - Labs CBC & Chem 7: 07/19/18 00:36 07/19/18 00:36 Labs: Short CBC 01/16/19 Range/Units 00:36 WBC 13.1 H (4.3-11.1) K/mcL Hgb 15.2 (11.5-15.4) g/dL Hct 46.4 H (35.3-44.9) % Plt Count 222 (140-400) K/mcL Neutrophils # 11.5 H (1.6-8.9) K/mcL BMP 07/19/18 00:36 Sodium 140 Potassium 4.1 Chloride 104 Carbon Dioxide 24 BUN 19 Creatinine 1.23 H Glucose 178 H Calcium 9.2 Cardiac Enzymes 07/19/18 Range/Units 00:36 Troponin I < 0.03 (< 0.04) ng/mL Liver Function 07/19/18 Range/Units 00:36 Total Bilirubin 0.4 (0.3-1.0) mg/dL Direct Bilirubin 0.1 (0.0-0.2) mg/dL AST 17 (13-39) Units/L ALT 9 (7-52) Units/L Alkaline Phosphatase 79 (34-104) Units/L Albumin 4.0 (3.5-5.7) g/dL Urine 07/19/18 Range/Units 01:25 Urine Color Yellow (Yellow) Urine Clarity Cloudy A (Clear) Urine pH 5.5 (5.0-8.0) pH Units Ur Specific [place] 1.020 (1.010-1.025) Urine Protein Negative (Neg-Trace) mg/dL Urine Glucose (UA) Normal (Normal) mg/dL - Impressions ITS Impressions Chest X-Ray 07/19/18 00:17 IMPRESSION: Negative portable study. D/ / Judith Lee Cha, MD / Judith Lee Cha, MD Interpreting Provider: Judith Lee Cha, MD
[2018-07-19] MEDS: 0.45 % Sodium Chloride w/KCl 20 MEQ/1,000 ML MLS IVC SCH (13:24)
--- NOTE | 2018-07-19 15:03 | Electrocardiograph Report ---
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
[2018-07-19] MEDS: DONEPEZIL 23 MG PO SCH (21:08)
[2018-07-19] MEDS: Lactobacillus 1 EACH CAP.SPRINK PO SCH (21:08)
[2018-07-19] MEDS: NAMENDA 28 MG PO SCH (21:09)
[2018-07-20] MEDS: cefTRIAXone 1,000 MG in Water for inj. (sterile) 20 ML 10 ML IVPB SCH (02:02)
[2018-07-20] MEDS: Lactobacillus 1 EACH CAP.SPRINK PO SCH ×2 (08:14→20:26)
[2018-07-20] MEDS: Metoprolol XL (24 HR) Succ 25 MG TAB.ER.24H PO SCH (08:14)
[2018-07-20] MEDS: Aspirin Enteric Coated 81 MG Tablet PO SCH (08:14)
[2018-07-20] MEDS: 0.45 % Sodium Chloride w/KCl 20 MEQ/1,000 ML MLS IVC SCH ×2 (08:15→20:21)
[2018-07-20 08:35] LABS: Basophils % 0.4 %; Eosinophils # 0.2 K/mcL (0.0-0.6); Eosinophils % 1.7 %; Hematocrit 37.8 % (35.3-44.9); Hemoglobin 12.4 g/dL (11.5-15.4); Immature Granulocytes % 0.2 % (0-4); Lymphocytes # 3.1 K/mcL (0.6-4.6); Lymphocytes % 31.9 %; Mean Corpuscular HGB Conc 32.8 g/dL (31.6-35.5); Mean Corpuscular Hemoglobin 31.8 pg (28.0-33.3); Mean Corpuscular Volume 96.9 fL (83.0-100.0); Mean Platelet Volume 11.2 fL (9.4-12.4); Monocytes # 0.9 K/mcL (0.0-1.3); Monocytes % 9.5 %; Neutrophils # 5.4 K/mcL (1.6-8.9); Platelet Count 173 K/mcL (140-400); Segmented Neutrophils % 56.3 %
[2018-07-20 09:46] LABS: Thyroid Stimulating Hormone 4.483 mcIU/mL (0.340-5.600)
[2018-07-20 09:55] LABS: BUN/Creatinine Ratio 18 (6-26); Blood Urea Nitrogen 13 mg/dL (8-23); Calcium 8.4 mg/dL (8.6-10.3); Carbon Dioxide 21 mEq/L (23-29); Chloride 110 mEq/L (98-107); Glucose 98 mg/dL (70-105); Magnesium 1.7 mg/dL (1.6-2.6); Osmolality,Calculated 284 (280-300); Sodium 137 mEq/L (136-145); eGFR For Non-African Americans > 60 (> 60)
--- NOTE | 2018-07-20 11:29 | Internal Med Progress Note ---
Date of Encounter: 07/20/18 Time of Encounter: 11:15 - Assessment and plan (1) Acute renal failure Current Visit: Yes Status: Acute Assessment and plan: July 20. BUN and creatinine improved to 13 and 0.73 respectively with es timated GFR greater than 60. Continue IV fluids and recheck labs in a.m. Qualifiers: Acute renal failure type: unspecified Qualified Code(s): N17.9 - Acute kidney failure, unspecified (2) Diarrhea Current Visit: Yes Status: Acute Assessment and plan: July 20. Improved. Continue present regimen. Qualifiers: Diarrhea type: unspecified type Qualified Code(s): R19.7 - Diarrhea, unspecified (3) Weight loss Current Visit: Yes Status: Acute Assessment and plan: July 20. TSH normal at 4.483. CT of abdomen shows likely malignant tumor in liver. (4) Neutrophilic leukocytosis Current Visit: Yes Status: Acute Assessment and plan: July 20. WBC and left shift have normalized. (5) Elevated d-dimer Current Visit: Yes Status: Acute Assessment and plan: July 20. No symptoms of DVT/PE. Continue prophylactic Lovenox. (6) Dementia Current Visit: Yes Status: Chronic Assessment and plan: July 20. Continue Aricept and Namenda. Qualifiers: Dementia type: Alzheimer's disease Alzheimer's disease onset: unspecified onset Dementia behavioral disturbance: with behavioral disturbance Qualified Code(s): G30.9 - Alzheimer's disease, unspecified; F02.81 - Dementia in other diseases classified elsewhere with behavioral disturbance (7) Hypertension Current Visit: Yes Status: Chronic Assessment and plan: July 20. Continue Toprol. Qualifiers: Hypertension type: essential hypertension Qualified Code(s): I10 - Essential (primary) hypertension (8) Urinary tract infection Current Visit: Yes Status: Acute Assessment and plan: July 20. Urine culture shows gram-negative rods with final report pending. Continue Rocephin and lactobacillus. Qualifiers: Urinary tract infection type: site unspecified Hematuria presence: with hematuria Qualified Code(s): N39.0 - Urinary tract infection, site not specified; R31.9 - Hematuria, unspecified (9) Liver nodule Current Visit: Yes Status: Acute Assessment and plan: July 20. I discussed at length the report of CT of abdomen showing 3.2 x 2.8 cm liver mass suspicious for metastatic lesion. Patient and daughter will discuss whether to be aggressive and choice of referral location - Subjective Interval history: July 20. She has no new complaints and feels better. - Constitutional Vitals: Temp Pulse Resp BP Pulse Ox 98.2 F 84 18 132/64 98 07/20/18 11:07 07/20/18 11:07 07/20/18 11:07 07/20/18 11:07 07/20/18 11:07 Exam: She is resting comfortably in bed and appears in no acute distress. Her affect is bright and cheerful. I reviewed her medications and lab results. I had a long discussion with patient and her daughter about the findings on abdominal/p elvic CT. Internal Medicine: Result - Labs CBC & Chem 7: 07/20/18 07:48 07/20/18 07:48 Labs: Short CBC 07/20/18 Range/Units 07:48 WBC 9.6 (4.3-11.1) K/mcL Hgb 12.4 D (11.5-15.4) g/dL Hct 37.8 (35.3-44.9) % Plt Count 173 (140-400) K/mcL Neutrophils # 5.4 (1.6-8.9) K/mcL BMP 07/20/18 07:48 Sodium 137 Potassium 4.0 Chloride 110 H Carbon Dioxide 21 L BUN 13 Creatinine 0.73 Glucose 98 Calcium 8.4 L - ABG Interpretation ABG results: PT/INR, D-dimer D-Dimer 1420 ng/mLFEU (0-500) H 07/19/18 00:36 - Impressions Impressions Abdomen/Pelvis CT 07/19/18 11:58 IMPRESSION: 1. Low-density 3.2 x 2.8 cm mass in close association with the IVC suspicious of metastatic lesion in the liver. 2. Thickening of small bowel wall with adjacent inflammatory changes suggesting enteritis with some associated liquid stool throughout the colon. 3. A subtle low-density focus in the fundus of the uterus. If it would alter management, a pelvic ultrasound could be obtained. While this likely represents a leiomyoma, malignancy not entirely excluded. The findings were sent to the Radiology Results Communication Center at 2:30 pm on 07/19/2018 to be communicated to a licensed caregiver. D/ : / 07/19/2018 14:34:47 Dmitry palma Interpreting Provider: Dmitry Babcock Chest CT 07/19/18 11:58 IMPRESSION: 1. Low-density 3.2 x 2.8 cm mass in close association with the IVC suspicious of metastatic lesion in the liver. 2. Thickening of small bowel wall with adjacent inflammatory changes suggesting enteritis with some associated liquid stool throughout the colon. 3. A subtle low-density focus in the fundus of the uterus. If it would alter management, a pelvic ultrasound could be obtained. While this likely represents a leiomyoma, malignancy not entirely excluded. The findings were sent to the Radiology Results Communication Center at 2:30 pm on 07/19/2018 to be communicated to a licensed caregiver. D/ / 07/19/2018 14:34:47 Dmitry palma Interpreting Provider: Dmitry Babcock Head CT 07/19/18 15:00 IMPRESSION: No acute intracranial abnormality. No finding worrisome for intracranial metastatic disease. Very small metastases could be present and inapparent on these noncontrast images. Mild cerebral atrophy appropriate for age. Mild chronic ischemic changes also appropriate for age. No change from the prior study. RECOMMENDATIONS: MRI without and with contrast is the best way to evaluate for intracranial metastatic disease. D/ / Ganesh Turcios MD / Ganesh Turcios MD Interpreting Provider: Ganesh Turcios MD Consult Discharge Plan - Plan Referrals: NONE,PCP [Primary Care Provider] - 1 week
[2018-07-20] MEDS: NAMENDA 28 MG PO SCH (20:25)
[2018-07-20] MEDS: DONEPEZIL 23 MG PO SCH (20:25)
[2018-07-21] MEDS: cefTRIAXone 1,000 MG in Water for inj. (sterile) 20 ML 10 ML IVPB SCH (02:16)
[2018-07-21] MEDS: Lactobacillus 1 EACH CAP.SPRINK PO SCH ×2 (09:15→20:44)
[2018-07-21] MEDS: Metoprolol XL (24 HR) Succ 25 MG TAB.ER.24H PO SCH (09:15)
[2018-07-21] MEDS: Aspirin Enteric Coated 81 MG Tablet PO SCH (09:16)
[2018-07-21] MEDS: 0.45 % Sodium Chloride w/KCl 20 MEQ/1,000 ML MLS IVC SCH (10:29)
--- NOTE | 2018-07-21 14:00 | Internal Med Progress Note ---
Date of Encounter: 07/21/18 Time of Encounter: 13:50 - Assessment and plan (1) Acute renal failure Current Visit: Yes Status: Acute Assessment and plan: July 20. BUN and creatinine improved to 13 and 0.73 respectively with es timated GFR greater than 60. Continue IV fluids and recheck labs in a.m. July 21. Oral intake satisfactory. Discontinue IV fluids. Anticipate discharge to swing bed tomorrow. Qualifiers: Acute renal failure type: unspecified Qualified Code(s): N17.9 - Acute kidney failure, unspecified (2) Diarrhea Current Visit: Yes Status: Acute Assessment and plan: July 20. Improved. Continue present regimen. Qualifiers: Diarrhea type: unspecified type Qualified Code(s): R19.7 - Diarrhea, unspecified (3) Weight loss Current Visit: Yes Status: Acute Assessment and plan: July 20. TSH normal at 4.483. CT of abdomen shows likely malignant tumor in liver. (4) Neutrophilic leukocytosis Current Visit: Yes Status: Acute Assessment and plan: July 20. WBC and left shift have normalized. (5) Elevated d-dimer Current Visit: Yes Status: Acute Assessment and plan: July 20. No symptoms of DVT/PE. Continue prophylactic Lovenox. (6) Dementia Current Visit: Yes Status: Chronic Assessment and plan: July 20. Continue Aricept and Namenda. Qualifiers: Dementia type: Alzheimer's disease Alzheimer's disease onset: unspecified onset Dementia behavioral disturbance: with behavioral disturbance Qualified Code(s): G30.9 - Alzheimer's disease, unspecified; F02.81 - Dementia in other diseases classified elsewhere with behavioral disturbance (7) Hypertension Current Visit: Yes Status: Chronic Assessment and plan: July 20. Continue Toprol. Qualifiers: Hypertension type: essential hypertension Qualified Code(s): I10 - Essential (primary) hypertension (8) Urinary tract infection Current Visit: Yes Status: Acute Assessment and plan: July 20. Urine culture shows gram-negative rods with final report pending. Continue Rocephin and lactobacillus. July 21. Urine culture shows Escherichia coli with broad sensitivity. Carolyn nge from Rocephin to oral Keflex. Qualifiers: Urinary tract infection type: site unspecified Hematuria presence: with hematuria Qualified Code(s): N39.0 - Urinary tract infection, site not specified; R31.9 - Hematuria, unspecified (9) Liver nodule Current Visit: Yes Status: Acute Assessment and plan: July 20. I discussed at length the report of CT of abdomen showing 3.2 x 2.8 cm liver mass suspicious for metastatic lesion. Patient and daughter will discuss whether to be aggressive and choice of referral location July 21. Patient's daughter/DPOA has chosen against aggressive intervention and desires no further workup or treatment. Patient is DNR CC. - Subjective Interval history: July 20. She has no new complaints and feels better. July 21. She has no new complaints and feels better. - Constitutional Vitals: Temp Pulse Resp BP Pulse Ox 98.3 F 65 16 122/61 95 07/21/18 10:55 07/21/18 10:55 07/21/18 10:55 07/21/18 10:55 07/21/18 10:55 Exam: She is sitting in a chair at bedside resting comfortably. Her affect is bright and cheerful. She has very poor memory but is pleasant and talkative. I reviewed her medications and past lab results. Internal Medicine: Result - Labs CBC & Chem 7: 07/20/18 07:48 07/20/18 07:48 - ABG Interpretation ABG results: PT/INR, D-dimer D-Dimer 1420 ng/mLFEU (0-500) H 07/19/18 00:36 - Impressions Impressions Abdomen/Pelvis CT 07/19/18 11:58 IMPRESSION: 1. Low-density 3.2 x 2.8 cm mass in close association with the IVC suspicious of metastatic lesion in the liver. 2. Thickening of small bowel wall with adjacent inflammatory changes suggesting enteritis with some associated liquid stool throughout the colon. 3. A subtle low-density focus in the fundus of the uterus. If it would alter management, a pelvic ultrasound could be obtained. While this likely represents a leiomyoma, malignancy not entirely excluded. The findings were sent to the [facility] at 2:30 pm on 07/19/2018 to be communicated to a licensed caregiver. D/ / 07/19/2018 14:34:47 Dmitry Babcock / louie Interpreting Provider: Dmitry Babcock Chest CT 07/19/18 11:58 IMPRESSION: 1. Low-density 3.2 x 2.8 cm mass in close association with the IVC suspicious of metastatic lesion in the liver. 2. Thickening of small bowel wall with adjacent inflammatory changes suggesting enteritis with some associated liquid stool throughout the colon. 3. A subtle low-density focus in the fundus of the uterus. If it would alter management, a pelvic ultrasound could be obtained. While this likely represents a leiomyoma, malignancy not entirely excluded. The findings were sent to the Radiology Results Communication [facility] at 2:30 pm on 07/19/2018 to be communicated to a licensed caregiver. D/ / 07/19/2018 14:34:47 Dmitry Babcock / louie Interpreting Provider: Dmitry Babcock Consult Discharge Plan - Plan Referrals: NONE,PCP [Primary Care Provider] - 1 week
[2018-07-21] MEDS: cephALEXin 500 MG CAPSULE PO SCH ×2 (16:50→20:43)
[2018-07-21] MEDS: NAMENDA 28 MG PO SCH (20:44)
[2018-07-21] MEDS: DONEPEZIL 23 MG PO SCH (20:44)
[2018-07-22 09:07] VITALS: BP 122/60
[2018-07-22] MEDS: cephALEXin 500 MG CAPSULE PO SCH (09:22)
[2018-07-22] MEDS: Lactobacillus 1 EACH CAP.SPRINK PO SCH (09:22)
[2018-07-22] MEDS: Metoprolol XL (24 HR) Succ 25 MG TAB.ER.24H PO SCH (09:22)
[2018-07-22] MEDS: Aspirin Enteric Coated 81 MG Tablet PO SCH (09:23)
--- NOTE | 2018-07-22 09:33 | Discharge Summary ---
Date of Encounter: 07/22/18 Time of Encounter: 09:20 - Discharge Diagnosis (1) Acute renal failure Priority: Primary Status: Resolved Qualifiers: Acute renal failure type: unspecified Qualified Code(s): N17.9 - Acute kidney failure, unspecified (2) Diarrhea Priority: Secondary Status: Resolved Qualifiers: Diarrhea type: unspecified type Qualified Code(s): R19.7 - Diarrhea, unspecified (3) Weight loss Priority: Secondary Status: Acute (4) Neutrophilic leukocytosis Priority: Secondary Status: Resolved (5) Elevated d-dimer Priority: Secondary Status: Acute (6) Dementia Priority: Secondary Status: Chronic Qualifiers: Dementia type: Alzheimer's disease Alzheimer's disease onset: unspecified onset Dementia behavioral disturbance: with behavioral disturbance Qualified Code(s): G30.9 - Alzheimer's disease, unspecified; F02.81 - Dementia in other diseases classified elsewhere with behavioral disturbance (7) Hypertension Priority: Secondary Status: Chronic Qualifiers: Hypertension type: essential hypertension Qualified Code(s): I10 - Essential (primary) hypertension (8) Urinary tract infection Priority: Secondary Status: Acute Qualifiers: Urinary tract infection type: site unspecified Hematuria presence: with hematuria Qualified Code(s): N39.0 - Urinary tract infection, site not specified; R31.9 - Hematuria, unspecified (9) Liver nodule Priority: Secondary Status: Acute Hospital course: Ms. Davila is a 82 year old female who came to emergency room after having 5-6 episodes of diarrhea with weakness and confusion. Her daughter found her standing in the hallway in the early-morning hours pale and diaphoretic. The daughter brought her to emergency room where she was found to have acute renal failure, leukocytosis with neutrophilia, and probable UTI. D-dimer was elevated. She was admitted to [facility] floor for ongoing care needs. Initial orders were written by the emergency room physician. I saw her on July 19 and performed a history and physical. IV fluids were given. Azotemia resolved with BUN and creatinine decreasing to 13 and 0.73 respectively by the following day. Labs will be monitored at [facility]. Diarrhea resolved during hospitalization. She was started on Rocephin empirically in emergency room for possible UTI. Lactobacillus was added. Urine culture report showed Escherichia coli. She will continue with Keflex and probiotic for 2 additional days at discharge. TSH and CT of chest abdomen pelvis were done to further evaluate weight loss. TSH returned normal at 4.483. CT scan showed low density 3.2 x 2.8 cm mass in the liver suspicious for metastatic lesion. There was subtle low density focus in the fundus of the uterus. This was felt to likely represent leiomyoma although malignancy was not entirely excluded. I discussed with the patient's daughter/DPOA results of the CT scan. After contemplation she felt it was best to pursue a conservative course without any further workup or treatment for possible malignancy due to the patient's underlying dementia and overall condition. She felt it was best for patient be transferred to SNF for ongoing care needs. Arrangements were complete July 22 for patient to go to [facility]. - Time Spent with Patient Total time spent providing and/or coordinating discharge services: - Discharge Medications Home Medications: Aspirin [Lo-Dose Aspirin EC] 81 mg PO DAILY 09/01/16 [History] Donepezil HCl [Aricept] 23 mg PO DAILY 09/01/16 [History] Memantine HCl [Namenda Xr] 28 mg PO DAILY 09/01/16 [History] Quetiapine Fumarate [Seroquel] 50 mg PO BID 09/01/16 [History] Buspirone HCl [Buspar] 5 mg PO QID 07/19/18 [History] Metoprolol Succinate [Toprol Xl] 25 mg PO DAILY 07/19/18 [History] Lactobacillus [Culturelle] 1 each PO BID 2 Days cap.sprink 07/22/18 [Rx] cephALEXin [Keflex] 500 mg PO TID 2 Days capsule 07/22/18 [Rx] Allergies/Adverse Reactions: Allergy/AdvReac Type Severity Reaction Status Date / Time No Known Allergies Allergy Verified 09/01/16 21:40 Date of admission: 07/19/18 13:51 Primary care physician: PCP NONE Consults: 07/19/18 03:28 Consult to Certified Scrub Tech [CONS] Routine Reason for SW Consult: Daughter/ POA would like to discuss ECF placement and DNR forms - Constitutional Vitals: Temp Pulse Resp BP Pulse Ox 97.7 F 52 16 122/60 96 07/21/18 22:44 07/22/18 09:06 07/21/18 22:44 07/22/18 09:06 07/21/18 22:44 - Patient Status Disposition: Transfer SNF Condition: Fair - Discharge Instructions Follow Up With: NONE,PCP [Primary Care Provider] - 1 week - Diet and Activity Activity: as per physical therapy Diet: regular diet
--- NOTE | 2018-07-22 09:42 | Physician Discharge Referral ---
ExtendedCare Referral Info Transfer To: [facility] Provider in Charge: David Provider in Charge after Transfer: PCP (David) - Diagnosis (1) Acute renal failure Priority: Primary Status: Resolved (2) Diarrhea Priority: Secondary Status: Resolved (3) Weight loss Priority: Secondary Status: Acute (4) Neutrophilic leukocytosis Priority: Secondary Status: Resolved (5) Elevated d-dimer Priority: Secondary Status: Acute (6) Dementia Priority: Secondary Status: Chronic (7) Hypertension Priority: Secondary Status: Chronic (8) Urinary tract infection Priority: Secondary Status: Acute (9) Liver nodule Priority: Secondary Status: Acute Prognosis: Fair Aware of Diagnosis: Patient, Family Aware of Prognosis: Patient, Family - Transfer Medications Home Medications: Aspirin [Lo-Dose Aspirin EC] 81 mg PO DAILY 09/01/16 [History] Donepezil HCl [Aricept] 23 mg PO DAILY 09/01/16 [History] Memantine HCl [Namenda Xr] 28 mg PO DAILY 09/01/16 [History] Quetiapine Fumarate [Seroquel] 50 mg PO BID 09/01/16 [History] Buspirone HCl [Buspar] 5 mg PO QID 07/19/18 [History] Metoprolol Succinate [Toprol Xl] 25 mg PO DAILY 07/19/18 [History] Lactobacillus [Culturelle] 1 each PO BID 2 Days cap.sprink 07/22/18 [Rx] cephALEXin [Keflex] 500 mg PO TID 2 Days capsule 07/22/18 [Rx] Allergies/Adverse Reactions: Allergy/AdvReac Type Severity Reaction Status Date / Time No Known Allergies Allergy Verified 09/01/16 21:40 - Respiratory Orders Smoking Cessation: Smoking cessation has been advised. For more information, call the [place] Tobacco Quit Line at 4-468-XZWD-NOW. - Lab Orders Lab Orders: Other (include drug levels w/frequency) (CBC with differential, BMP in 1 week) - Mobility Orders Ambulate (Ambulate with assistance) - Rehabiliation Orders Rehab Potential: Fair Rehab Orders: Evaluation for Physical Therapy, Evaluation for Occupational Therapy - Diet Orders Regular CERTIFICATION: I certify that the transfer of the above named patient to an Extended Care Facility is necessary for the continuing treatment of the diagnosis listed. The above information is true and accurate reflection of patient's current condition. Confidential - Redisclosure prohibited without a patient's written consent.
== END 2018-07-22 13:47 | DRG 683 ==
LOC: INPPIK 23:48 → EMEROOPIK 23:48 → INPPIK 07-19 03:00
PROVIDERS: ADMIT Internal Medicine; ATTEND Internal Medicine